=== PATIENT | male | born 1955 | race Hispanic/Latino ===

== ENCOUNTER → 2024-09-08 | Day surgery (SDC) | payer MEDICARE ==
[~2024-09-08] MED LIST: ACETAMINOPHEN 1000 MG/100 ML 100 ML IV ONE; ALLERGY SHOT IM; ATORVASTATIN CA10 MG PO; BUPIVACAINE LIPOSOME/PF 266 MG/20 ML IJ ONE; CIALIS5 MG PO; CILOSTAZOL100 MG PO; DEXAMETHASONE SOD PHOS INJ 4 MG/ML SDV ONE; EPHEDRINE SULFATE INJ 50 MG/ML VIAL ONE; FAMOTIDINE 20 MG/2 ML VIAL IV ONE; FENTANYL CITRATE/PF 100MCG/2 ML INJ ONE; FLOMAX0.4 MG PO; FLONASE ALLERG9.9 ML INH; GLUCOSAMINE-CH1 EA40; GLYCOPYRROLATE INJ 0.2 MG/ML VIAL ONE; LIDOCAINE HCL 2% LOCAL INJ 5 ML SDV VIAL INJ ONE; LOSARTAN POTASS50 MG PO; NEOSTIGMINE 1 MG/ML 10ML VIAL ONE; ONDANSETRON HCL INJ 2MG/ML 2ML 2 MG/ML VIAL ONE; PHENYLEPHRINE HCL 1% 10 MG/ML VIAL ONE; PROPOFOL IV EMULSION 10 MG/ML 20 ML VIAL ONE; ROCURONIUM BROMIDE 1 ML IV ONE; SODIUM CHLORIDE 0.9% 100 ML ONE
[2024-09-08] MEDS: LACTATED RINGER'S 1,000 ML ONE (06:39)
[2024-09-08 14:34] VITALS: TEMP 97.8
[2024-09-08 15:25] VITALS: BP 138/85; PULSE 77; RESP 16; O2SAT 97
== END | disposition home or self-care (01) ==
LOC: OR 06:25
PROVIDERS: ATTEND Orthopaedic Surgery Sports Medicine
DX: S46.012A Strain of muscle(s) and tendon(s) of the rotator cuff of left shoulder, initial encounter (principal); S46.812A Strain of other muscles, fascia and tendons at shoulder and upper arm level, left arm, initial encounter; S43.432A Superior glenoid labrum lesion of left shoulder, initial encounter; S46.112A Strain of muscle, fascia and tendon of long head of biceps, left arm, initial encounter; M75.42 Impingement syndrome of left shoulder; G89.29 Other chronic pain; G47.33 Obstructive sleep apnea (adult) (pediatric); D64.9 Anemia, unspecified; I10 Essential (primary) hypertension; E78.5 Hyperlipidemia, unspecified; N40.0 Benign prostatic hyperplasia without lower urinary tract symptoms; Z71.3 Dietary counseling and surveillance; E66.9 Obesity, unspecified; W01.0XXA Fall on same level from slipping, tripping and stumbling without subsequent striking against object, initial encounter; Y93.89 Activity, other specified; Y99.8 Other external cause status; Z88.0 Allergy status to penicillin; Z79.899 Other long term (current) drug therapy
CPT/HCPCS: 23430; 29826; 29827; C1713 ×8; J0131; J0666; J0690; J1100; J2003; J2371; J2405; J2704; J2710; J3010; J3590; J7050; J7121

== ENCOUNTER 2024-09-11 09:09 | Emergency (ER) | payer MEDICARE ==
[~2024-09-11] VITALS: Ht 172.7 cm; Wt 93.0 kg
[~2024-09-11 09:09] MED LIST changes: -ACETAMINOPHEN 1000 MG/100 ML 100 ML IV ONE; -BUPIVACAINE LIPOSOME/PF 266 MG/20 ML IJ ONE; -DEXAMETHASONE SOD PHOS INJ 4 MG/ML SDV ONE; -EPHEDRINE SULFATE INJ 50 MG/ML VIAL ONE; -FAMOTIDINE 20 MG/2 ML VIAL IV ONE; -FENTANYL CITRATE/PF 100MCG/2 ML INJ ONE; -GLYCOPYRROLATE INJ 0.2 MG/ML VIAL ONE; -LIDOCAINE HCL 2% LOCAL INJ 5 ML SDV VIAL INJ ONE; -NEOSTIGMINE 1 MG/ML 10ML VIAL ONE; -ONDANSETRON HCL INJ 2MG/ML 2ML 2 MG/ML VIAL ONE; -PHENYLEPHRINE HCL 1% 10 MG/ML VIAL ONE; -PROPOFOL IV EMULSION 10 MG/ML 20 ML VIAL ONE; -ROCURONIUM BROMIDE 1 ML IV ONE; -SODIUM CHLORIDE 0.9% 100 ML ONE
[2024-09-11 09:18] VITALS: TEMP 98.2
[2024-09-11 11:40] LABS: BACTERIA,URINE FEW /HPF; BILIRUBIN,URINE NEGATIVE (NEGATIVE); CLARITY,URINE CLEAR (CLEAR); COLOR,URINE YELLOW (YELLOW); EPITHELIAL CELLS,URINE RARE /LPF; GLUCOSE, URINE NEGATIVE (NEGATIVE); KETONES,URINE NEGATIVE (NEGATIVE); LEUKOCYTE ESTERASE ,URINE NEGATIVE (NEGATIVE); NITRITE,URINE NEGATIVE (NEGATIVE); PH,URINE 6 (5 - 7); PROTEIN,URINE DIPSTICK NEGATIVE (NEGATIVE); URINE UROBILINOGEN 0.2 mg/dL (0.2 - 1); WBC,URINE (MAN) 0-5 /HPF (0-5)
[2024-09-11 12:10] VITALS: PULSE 77; RESP 18; O2SAT 98
== END 2024-09-11 12:24 | disposition home or self-care (01) ==
LOC: ER 09:32
DX: R33.9 Retention of urine, unspecified (principal); I10 Essential (primary) hypertension
CPT/HCPCS: 51700; 81001; 99282